=== PATIENT | female | born 1940 | race Caucasian/White ===

== ENCOUNTER 2021-04-13 14:39 | Inpatient (IN) | payer BC, MEDICARE, OTHER ==
[~2021-04-13] VITALS: Ht 172.7 cm; Wt 76.6 kg
--- NOTE | 2021-04-13 14:51 | NUR ---
PT BRUCE FROM [facility] SKILLED NURSING. PER EMS PT HAS BEEN WEAK AND SOB X1 WEEK. EMS STATES THAT MORNING STAR PHYSCIAN EVALUATED PT 2 DAYS AGO AND CHANGED METOPROLOL FROM 25MG QDAY TO 100MG QDAY. PER EMS PT HAS BEEN GETTING MORE SOB TODAY AND SO THEY WANTED HER EVALUATED. PT HAS POLST WITH HER THAT STATES COMFORT CARE ONLY. PT STATING SHE HAS NO PAIN, IS NOT SOB, AND DOES NOT FEEL WEAK. PT STATES "I JUST FEEL A LITTLE UNCOMFORTABLE FROM THE GURNEY". PT RESTING IN [facility], MONITORING IN PLACE, EKG DONE UPON ARRIVAL, NADN AT THIS TIME, WCTM.
[2021-04-13] MEDS ORDERED: SODIUM CHLORIDE FLUSH 10ML SYR IVF ONE (15:30)
[2021-04-13 15:35] LABS: BASOPHILS % (AUTO) 2 % (0-1); EOSINOPHILS % (AUTO) 2 % (1-7); LYMPHOCYTES % (AUTO) 17 % (22-44); MEAN CORPUSCULAR HEMOGLOBIN 30.9 pg (27.0-34.8); MEAN CORPUSCULAR HGB CONC 33.6 g/dL (32.4-35.8); MEAN PLATELET VOLUME 8.6 fL (7.4-10.4); MONOCYTES % (AUTO) 13 % (2-9); NEUTROPHILS % (AUTO) 67 % (42-75); PLATELET COUNT 247 x10^3/uL (130-400); RED BLOOD COUNT 4.18 x10^6/uL (3.82-5.3); RED CELL DISTRIBUTION WIDTH 15.1 % (9.6-15.2)
[2021-04-13 15:47] LABS: ALBUMIN 3.7 g/dL (3.4-5.0); ANION GAP 4 mmol/L (5-15); CALCIUM 9.6 mg/dL (8.5-10.1); CHLORIDE 107 mmol/L (98-107)
[2021-04-13 15:51] LABS: D-DIMER 1.02 ug/mlFEU (0.00-0.52); INTERNATIONAL NORMALIZED RATIO 1.04 (0.93-1.1); PROTHROMBIN TIME 11.1 Seconds (9.6-11.5)
[2021-04-13 15:57] LABS: CREATININE 1.48 mg/dL (0.55-1.02); FREE T4 (FREE THYROXINE) 1.33 ng/dL (0.76-1.46); TROPONIN I < 0.015 ng/mL (0.000-0.045)
[2021-04-13] MEDS ORDERED: OMNIPAQUE 350 MG/ML, 75ML BOTTLE ONE (18:15)
--- NOTE | 2021-04-13 18:15 | NUR ---
PT TO CT AT THIS TIME
--- NOTE | 2021-04-13 18:50 | NUR ---
REPORT TO JOSE ALEJANDRO CHASE.
--- NOTE | 2021-04-13 18:52 | NUR ---
report from diony assumed care of pt at this time
[2021-04-13] MEDS ORDERED: DILTIAZEM 5 MG/ML, 5ML IV ONE (19:30)
[2021-04-13] MEDS ORDERED: SODIUM CHLORIDE FLUSH 10ML SYR IVF PRN (19:30)
[2021-04-13] MEDS ORDERED: DILTIAZEM 5 MG/ML, 5ML ONE (19:44)
--- NOTE | 2021-04-13 19:50 | NUR ---
MEDICATED PER MAR
--- NOTE | 2021-04-13 20:40 | NUR ---
report to [facility] pt to floor with tech
[2021-04-13] MEDS ORDERED: DOCUSATE 100 MG CAPSULE PO PRN (21:00)
[2021-04-13] MEDS ORDERED: ACETAMINOPHEN 325 MG TABLET PO PRN (21:00)
[2021-04-13] MEDS ORDERED: MELATONIN 5 MG TABLET PO PRN (21:00)
[2021-04-13] MEDS ORDERED: LIDODERM 5% PATCH TD PRN (21:00)
[2021-04-13 21:25] VITALS: BP 136/97
[2021-04-13] MEDS: FUROSEMIDE 20 MG/2 ML IV SCH (22:16)
[2021-04-13] MEDS ORDERED: CARB1TAB47 PO ×2 (23:00)
[2021-04-13] MEDS ORDERED: PLEASE ENTER ALLERGIES MC SCH (23:00)
[2021-04-13] MEDS ORDERED: METO100T5 PO (23:00)
[2021-04-13] MEDS ORDERED: BISM262O20 PO (23:00)
[2021-04-13] MEDS ORDERED: DULO30CA44 PO (23:00)
[2021-04-13] MEDS ORDERED: MIRA25TA PO (23:00)
[2021-04-13] MEDS ORDERED: ACET-1600 PO (23:00)
[2021-04-13] MEDS ORDERED: LEVO50TA5 PO (23:00)
[2021-04-13] MEDS: APIXABAN 2.5 MG TABLET PO SCH (23:05)
[2021-04-13] MEDS ORDERED: LEVOTHYROXINE MC SCH (23:45)
[2021-04-13] MEDS ORDERED: METOPROLOL SUCCINATE 100 MG TAB.ER.24H ONE (23:53)
[2021-04-14] VITALS: BP 122/88
[2021-04-14] MEDS: CARBIDOPA/LEVODOPA 25 MG/100 MG TABLET PO SCH ×6 (00:02→20:15)
[2021-04-14] MEDS: DULOXETINE 30 MG CAPSULE.DR PO SCH ×3 (00:03→20:15)
[2021-04-14] MEDS: METOPROLOL SUCCINATE 100 MG TAB.ER.24H PO SCH (00:03)
[2021-04-14 05:27] LABS: BASOPHILS % (AUTO) 1 % (0-1); EOSINOPHILS % (AUTO) 1 % (1-7); LYMPHOCYTES % (AUTO) 13 % (22-44); MEAN CORPUSCULAR HEMOGLOBIN 30.4 pg (27.0-34.8); MEAN PLATELET VOLUME 8.9 fL (7.4-10.4); MONOCYTES % (AUTO) 12 % (2-9); NEUTROPHILS % (AUTO) 73 % (42-75); PLATELET COUNT 257 x10^3/uL (130-400); RED BLOOD COUNT 4.36 x10^6/uL (3.82-5.3)
[2021-04-14 05:37] LABS: ANION GAP 9 mmol/L (5-15); CALCIUM 9.7 mg/dL (8.5-10.1); CHLORIDE 105 mmol/L (98-107); CREATININE 1.44 mg/dL (0.55-1.02)
[2021-04-14] MEDS ORDERED: LEVOTHYROXINE 50 MCG TABLET PO SCH (07:00)
[2021-04-14 07:30] VITALS: BP 126/88
[2021-04-14] MEDS: FUROSEMIDE 20 MG/2 ML IV SCH ×2 (07:38→17:34)
[2021-04-14] MEDS: LEVOTHYROXINE 50 MCG TABLET PO SCH (07:39)
[2021-04-14] MEDS: APIXABAN 2.5 MG TABLET PO SCH ×2 (07:39→20:14)
[2021-04-14] MEDS: DILTIAZEM 90 MG TABLET PO SCH ×3 (10:20→20:14)
[2021-04-14] MEDS ORDERED: CARB1TAB44 PO (11:46)
[2021-04-14 13:57] VITALS: BP 96/65
[2021-04-14 17:30] VITALS: BP 130/85
[2021-04-14 18:51] VITALS: BP 102/62
[2021-04-14 20:09] VITALS: BP 105/73
[2021-04-14] MEDS: CARBIDOPA/LEVODOPA CR 50 MG/200 MG TABLET PO SCH (20:14)
[2021-04-14] MEDS: TEMPLATE NON-FORMULARY MED. (Mirabegron** (Myrbetriq**) 25 MG) HOMEMEDPO SCH ×2 (20:15)
[2021-04-15 01:32] VITALS: BP 114/80
[2021-04-15] MEDS: CARBIDOPA/LEVODOPA CR 50 MG/200 MG TABLET PO SCH ×4 (02:42→20:35)
[2021-04-15 07:36] VITALS: BP 115/72
[2021-04-15] MEDS: DILTIAZEM 120 MG CAP.ER.12H PO SCH ×2 (08:39→20:35)
[2021-04-15] MEDS: APIXABAN 2.5 MG TABLET PO SCH ×2 (09:13→20:35)
[2021-04-15] MEDS: FUROSEMIDE 20 MG/2 ML IV SCH ×2 (09:13→16:58)
[2021-04-15] MEDS: METOPROLOL SUCCINATE 100 MG TAB.ER.24H PO SCH (09:13)
[2021-04-15] MEDS: DULOXETINE 30 MG CAPSULE.DR PO SCH ×2 (09:14→20:35)
[2021-04-15] MEDS: LEVOTHYROXINE 50 MCG TABLET PO SCH (09:14)
[2021-04-15] MEDS: CARBIDOPA/LEVODOPA 25 MG/100 MG TABLET PO SCH ×4 (09:18→20:35)
[2021-04-15 14:45] VITALS: BP 112/73
[2021-04-15 20:04] VITALS: BP 102/75
[2021-04-15 20:31] VITALS: BP 104/72
[2021-04-15] MEDS: TEMPLATE NON-FORMULARY MED. (Mirabegron** (Myrbetriq**) 25 MG) HOMEMEDPO SCH (20:37)
[2021-04-16 01:06] VITALS: BP 104/69
[2021-04-16] MEDS: CARBIDOPA/LEVODOPA CR 50 MG/200 MG TABLET PO SCH ×3 (02:55→16:48)
[2021-04-16 08:40] VITALS: BP 111/78
[2021-04-16] MEDS: FUROSEMIDE 20 MG/2 ML IV SCH ×2 (08:45→16:50)
[2021-04-16] MEDS: METOPROLOL SUCCINATE 100 MG TAB.ER.24H PO SCH (08:46)
[2021-04-16] MEDS: DULOXETINE 30 MG CAPSULE.DR PO SCH (08:46)
[2021-04-16] MEDS: DILTIAZEM 120 MG CAP.ER.12H PO SCH (08:46)
[2021-04-16] MEDS: APIXABAN 2.5 MG TABLET PO SCH (08:47)
[2021-04-16] MEDS: LEVOTHYROXINE 50 MCG TABLET PO SCH (08:47)
[2021-04-16] MEDS: CARBIDOPA/LEVODOPA 25 MG/100 MG TABLET PO SCH ×2 (08:47→16:47)
[2021-04-16] MEDS ORDERED: DILT120C11 PO (14:41)
[2021-04-16] MEDS ORDERED: APIX2.5T PO (14:49)
[2021-04-16 15:05] VITALS: BP 104/78
== END 2021-04-16 19:09 | disposition home health service (06) | DRG 291 ==
LOC: ED 19:15 → EDIP 19:22 → ED 19:52 → 5SO 21:23
PROVIDERS: ADMIT Family Medicine; ATTEND Family Medicine
DX: I13.0 Hypertensive heart and chronic kidney disease with heart failure and stage 1 through stage 4 chronic kidney disease, or unspecified chronic kidney disease (principal); N17.0 Acute kidney failure with tubular necrosis; I50.21 Acute systolic (congestive) heart failure; J96.00 Acute respiratory failure, unspecified whether with hypoxia or hypercapnia; D68.69 Other thrombophilia; I48.20 Chronic atrial fibrillation, unspecified; E06.3 Autoimmune thyroiditis; E78.5 Hyperlipidemia, unspecified; G20 Parkinson's disease; N18.9 Chronic kidney disease, unspecified; Z66 Do not resuscitate; Z85.3 Personal history of malignant neoplasm of breast; Z86.73 Personal history of transient ischemic attack (TIA), and cerebral infarction without residual deficits
CPT/HCPCS: 36415; 71045; 71275; 80048; 82040; 83735; 83880; 84100; 84439; 84443; 84484; 85025; 85379; 85610; 85730; 93005; 93306; 96374; G0378; Q9967; J1940

== ENCOUNTER 2021-06-17 08:21 | Inpatient (IN) | payer BC ==
[~2021-06-17] VITALS: Ht 172.7 cm; Wt 75.1 kg
[~2021-06-17 08:21] MED LIST: ACET-1600 PO; APIX2.5T PO; BISM262O20 PO; CARB1TAB44 PO; CARB1TAB47 PO; DILT120C11 PO; DULO30CA44 PO; LEVO50TA5 PO; METO100T5 PO; MIRA25TA PO
[2021-06-17] MEDS ORDERED: ONDANSETRON 2MG/ML, 2ML ONE ×2 (08:26→17:39)
[2021-06-17] MEDS ORDERED: MORPHINE SULFATE 4 MG/ML, 1ML ONE ×2 (08:26→12:34)
[2021-06-17] MEDS ORDERED: ONDANSETRON 2MG/ML, 2ML IVPush ONE ×2 (08:30→12:30)
[2021-06-17] MEDS ORDERED: SODIUM CHLORIDE FLUSH 10ML SYR IVF ONE (08:30)
[2021-06-17] MEDS: MORPHINE SULFATE 4 MG/ML, 1ML IVPush PRN ×2 (08:36→12:35)
[2021-06-17] MEDS ORDERED: CLON0.5T20 PO (08:38)
[2021-06-17 08:50] LABS: BASOPHILS % (AUTO) 1 % (0-1); EOSINOPHILS % (AUTO) 2 % (1-7); LYMPHOCYTES % (AUTO) 11 % (22-44); MEAN CORPUSCULAR HEMOGLOBIN 29.8 pg (27.0-34.8); MEAN CORPUSCULAR HGB CONC 33.2 g/dL (32.4-35.8); MEAN PLATELET VOLUME 7.7 fL (7.4-10.4); MONOCYTES % (AUTO) 10 % (2-9); NEUTROPHILS % (AUTO) 77 % (42-75); PLATELET COUNT 260 x10^3/uL (130-400); RED BLOOD COUNT 4.48 x10^6/uL (3.82-5.3); RED CELL DISTRIBUTION WIDTH 16.2 % (9.6-15.2)
[2021-06-17 09:01] LABS: ALBUMIN 3.8 g/dL (3.4-5.0); ANION GAP 8 mmol/L (5-15); CALCIUM 9.7 mg/dL (8.5-10.1); CHLORIDE 105 mmol/L (98-107)
--- NOTE | 2021-06-17 09:23 | NUR ---
ERMD FAILED TO REDUCE LEFT SIDED INGUINAL HERNIA. PT HOB TO LEVEL OF COMFORT. NAD NOTED AT THIS TIME.
--- NOTE | 2021-06-17 09:26 | NUR ---
UA AND LANIE JUNE WALKED TO LAB. HOB TO LEVEL OF COMFORT FOR PT, NAD NOTED AT THIS TIME.
[2021-06-17 09:44] LABS: MICROSCOPIC AUTO
--- NOTE | 2021-06-17 09:48 | NUR ---
PT CURRENTLY TAKEN TO CT.
[2021-06-17] MEDS ORDERED: OMNIPAQUE 350 MG/ML, 100ML BOTTLE ONE (10:11)
--- NOTE | 2021-06-17 10:12 | NUR ---
ATTEMPT TO CALL PT'S DAUGHTER JEFFREY HOME: , WORK: PER PT REQUEST. NO ANSWER AT THIS TIME.
[2021-06-17] MEDS ORDERED: MORPHINE SULFATE 4 MG/ML, 1ML IVPush PRN (12:30)
[2021-06-17] MEDS ORDERED: ACETAMINOPHEN 325 MG TABLET PO PRN (13:30)
[2021-06-17 13:43] VITALS: BP 161/106
[2021-06-17] MEDS ORDERED: HUM PROTHROMBIN CPLX IVPB ONE (14:00)
[2021-06-17] MEDS ORDERED: [UNRECOGNIZED DRUG - OTHER] IVPB ONE (14:00)
[2021-06-17] MEDS ORDERED: ONDANSETRON 2MG/ML, 2ML IVPush PRN ×2 (14:30→18:30)
[2021-06-17 14:55] VITALS: BP 144/91
[2021-06-17] MEDS: DILTIAZEM 125 MG in SODIUM CHLORIDE 0.9% 100 ML IV SCH ×2 (15:39→20:37)
[2021-06-17] MEDS ORDERED: BUPIVACAINE/PF 0.5% ONE (16:40)
[2021-06-17] MEDS ORDERED: EPINEPHRINE 1 MG/ML, 1ML ONE (16:40)
[2021-06-17] MEDS: CEFTRIAXONE 1,000 MG in DEXTROSE 5% 50 ML IVPB SCH (16:43)
[2021-06-17] MEDS ORDERED: PROPOFOL 10 MG/ML, 20ML ONE (17:39)
[2021-06-17] MEDS ORDERED: CEFOTETAN 1 GM ONE (17:39)
[2021-06-17] MEDS ORDERED: DEXAMETHASONE 4 MG/ML, 1ML ONE (17:39)
[2021-06-17] MEDS ORDERED: SUGAMMADEX 200 MG/2 ML IVPush ONE (17:39)
[2021-06-17] MEDS ORDERED: ROCURONIUM 10 MG/ML,10ML ONE (17:39)
[2021-06-17] MEDS ORDERED: FENTANYL PF 250 MCG/5ML ONE (18:01)
[2021-06-17] MEDS ORDERED: HYDROmorphone 1 MG/ML, 1ML INJ IVPush PRN (18:30)
[2021-06-17] MEDS ORDERED: OXYcodone 5 MG/5 ML ORAL.SOL UDC PO PRN (18:30)
[2021-06-17] MEDS ORDERED: EPHEDRINE 50 MG/ML, 1ML IVPush PRN (18:30)
[2021-06-17] MEDS ORDERED: hydrALAzine 20 MG/ML, 1ML IV PRN (18:30)
[2021-06-17] MEDS ORDERED: FENTANYL PF 100 MCG/2ML IV PRN (18:30)
[2021-06-17] MEDS ORDERED: PROMETHAZINE 25 MG/ML, 1ML IVPush PRN (18:30)
[2021-06-17] MEDS ORDERED: PROMETHAZINE 12.5 MG SUPP PR PRN (18:30)
[2021-06-17] MEDS ORDERED: MEPERIDINE/PF 25MG/0.5ML IVPush PRN (18:30)
[2021-06-17] MEDS ORDERED: ALBUTEROL SULFATE 2.5 MG/3 ML NPPB PRN (18:30)
[2021-06-17] MEDS ORDERED: DIPHENHYDRAMINE 50 MG/ML, 1ML IVPush PRN ×2 (18:30)
[2021-06-17] MEDS ORDERED: LABETALOL 5MG/ML, 20ML IV PRN (18:30)
[2021-06-17] MEDS ORDERED: TRAZODONE 50MG TABLET PO PRN (21:00)
[2021-06-17 21:03] VITALS: BP 153/83
[2021-06-18 01:06] VITALS: BP 142/90
[2021-06-18] MEDS: DILTIAZEM 125 MG in SODIUM CHLORIDE 0.9% 100 ML IV SCH ×2 (02:51→15:59)
[2021-06-18 06:56] LABS: BASOPHILS % (AUTO) 1 % (0-1); EOSINOPHILS % (AUTO) 0 % (1-7); LYMPHOCYTES % (AUTO) 5 % (22-44); MEAN CORPUSCULAR HEMOGLOBIN 30.1 pg (27.0-34.8); MEAN CORPUSCULAR HGB CONC 33.7 g/dL (32.4-35.8); MEAN PLATELET VOLUME 7.8 fL (7.4-10.4); MONOCYTES % (AUTO) 2 % (2-9); NEUTROPHILS % (AUTO) 93 % (42-75); PLATELET COUNT 282 x10^3/uL (130-400); RED BLOOD COUNT 4.64 x10^6/uL (3.82-5.3); RED CELL DISTRIBUTION WIDTH 16.4 % (9.6-15.2)
[2021-06-18 07:00] VITALS: BP 143/84
[2021-06-18 07:10] LABS: ALBUMIN 3.6 g/dL (3.4-5.0); CALCIUM 10.1 mg/dL (8.5-10.1); CHLORIDE 103 mmol/L (98-107)
[2021-06-18 07:15] LABS: ALANINE AMINOTRANSFERASE 11 U/L (12-78); ALKALINE PHOSPHATASE 84 U/L (45-117); ANION GAP 11 mmol/L (5-15); BILIRUBIN,TOTAL 0.7 mg/dL (0.2-1.0); CREATININE 1.38 mg/dL (0.55-1.02); TOTAL PROTEIN 8.2 g/dL (6.4-8.2); TROPONIN I < 0.015 ng/mL (0.000-0.045)
[2021-06-18] MEDS: morphine SULFATE 10 MG/ML, 1ML IVPush PRN ×2 (09:58→21:52)
[2021-06-18] MEDS: METOPROLOL TARTRATE 25 MG TAB PO SCH ×2 (10:53→18:50)
[2021-06-18] MEDS: APIXABAN 5 MG TABLET PO SCH ×2 (10:53→21:51)
[2021-06-18 13:42] VITALS: BP 156/105
[2021-06-18] MEDS: CEFTRIAXONE 1,000 MG in DEXTROSE 5% 50 ML IVPB SCH (14:44)
[2021-06-18] MEDS: CARBIDOPA/LEVODOPA 25 MG/100 MG TABLET PO SCH ×3 (16:00→21:51)
[2021-06-18 18:47] VITALS: BP 128/88
[2021-06-18] MEDS: TEMPLATE NON-FORMULARY MED. (Mirabegron** (Myrbetriq**) 25 MG) PO SCH (21:00)
[2021-06-18] MEDS: CARBIDOPA/LEVODOPA CR 50 MG/200 MG TABLET PO SCH (21:00)
[2021-06-18] MEDS: DULOXETINE 30 MG CAPSULE.DR PO SCH (21:51)
[2021-06-18] MEDS: MELATONIN 5 MG TABLET PO PRN (21:51)
[2021-06-19 02:00] VITALS: BP 116/77
[2021-06-19] MEDS: METOPROLOL TARTRATE 25 MG TAB PO SCH ×2 (05:58→17:13)
[2021-06-19] MEDS: LEVOTHYROXINE 50 MCG TABLET PO SCH (05:58)
[2021-06-19 07:27] VITALS: BP 142/96
[2021-06-19] MEDS ORDERED: DILTIAZEM 125 MG in SODIUM CHLORIDE 0.9% 100 ML IV SCH (08:00)
[2021-06-19] MEDS: CARBIDOPA/LEVODOPA 25 MG/100 MG TABLET PO SCH ×4 (08:25→22:46)
[2021-06-19] MEDS: DULOXETINE 30 MG CAPSULE.DR PO SCH ×2 (08:25→22:46)
[2021-06-19] MEDS: APIXABAN 5 MG TABLET PO SCH ×2 (08:25→22:46)
[2021-06-19] MEDS ORDERED: DOCUSATE 100 MG CAPSULE PO PRN (13:00)
[2021-06-19] MEDS: SENNA/DOCUSATE TABLET PO SCH (14:33)
[2021-06-19] MEDS: POLYETHYLENE GLYCOL 17 GM PACKET PO PRN (14:34)
[2021-06-19] MEDS: CEFTRIAXONE 1,000 MG in DEXTROSE 5% 50 ML IVPB SCH (14:46)
[2021-06-19 14:56] VITALS: BP 125/80
[2021-06-19 17:10] VITALS: BP 151/98
[2021-06-19 19:58] VITALS: BP 117/74
[2021-06-19] MEDS: TEMPLATE NON-FORMULARY MED. (Mirabegron** (Myrbetriq**) 25 MG) PO SCH (22:41)
[2021-06-19] MEDS: CARBIDOPA/LEVODOPA CR 50 MG/200 MG TABLET PO SCH (22:44)
[2021-06-19] MEDS: DILTIAZEM 120 MG CAP.ER.12H PO SCH (22:46)
[2021-06-19] MEDS: MELATONIN 5 MG TABLET PO PRN (22:55)
[2021-06-19] MEDS: OXYcodone/APAP 5/325MG TABLET PO PRN (23:43)
[2021-06-20 03:45] VITALS: BP 146/93
[2021-06-20] MEDS: LEVOTHYROXINE 50 MCG TABLET PO SCH (06:28)
[2021-06-20] MEDS: METOPROLOL TARTRATE 25 MG TAB PO SCH (06:28)
[2021-06-20 06:32] VITALS: BP 153/100
[2021-06-20] MEDS: DILTIAZEM 120 MG CAP.ER.12H PO SCH (11:04)
[2021-06-20] MEDS: CARBIDOPA/LEVODOPA 25 MG/100 MG TABLET PO SCH (11:04)
[2021-06-20] MEDS: SENNA/DOCUSATE TABLET PO SCH (11:05)
[2021-06-20] MEDS: DULOXETINE 30 MG CAPSULE.DR PO SCH (11:05)
[2021-06-20] MEDS: APIXABAN 5 MG TABLET PO SCH (11:05)
[2021-06-20] MEDS: POLYETHYLENE GLYCOL 17 GM PACKET PO PRN (11:38)
[2021-06-20 12:22] VITALS: BP 116/83
[2021-06-20] MEDS ORDERED: SENN-211 PO (12:49)
[2021-06-20] MEDS ORDERED: DOCU-131 PO (12:49)
[2021-06-20] MEDS: OXYcodone/APAP 5/325MG TABLET PO PRN (13:58)
== END 2021-06-20 14:43 | disposition home health service (06) | DRG 351 ==
LOC: ED 08:37 → 4NE 11:13 → SUATTDRO 12:54 → 4NE 13:15 → ED 13:46 → 5SO 14:52
PROVIDERS: ADMIT Internal Medicine; ATTEND Hospitalist
PROC: 8E0W4CZ Robotic Assisted Procedure of Trunk Region, Percutaneous Endoscopic Approach (ICD-10-PCS; 2021-06-17)
PROC: 0YU64JZ Supplement Left Inguinal Region with Synthetic Substitute, Percutaneous Endoscopic Approach (ICD-10-PCS; principal; 2021-06-17 17:00)
DX: K40.31 Unilateral inguinal hernia, with obstruction, without gangrene, recurrent (principal); I48.20 Chronic atrial fibrillation, unspecified; N39.0 Urinary tract infection, site not specified; G20 Parkinson's disease; I50.9 Heart failure, unspecified; N18.30 Chronic kidney disease, stage 3 unspecified; Z66 Do not resuscitate; Z20.822 Contact with and (suspected) exposure to COVID-19; R53.81 Other malaise; Z79.01 Long term (current) use of anticoagulants; Z86.73 Personal history of transient ischemic attack (TIA), and cerebral infarction without residual deficits; Z80.8 Family history of malignant neoplasm of other organs or systems
CPT/HCPCS: 36415; 96374; 96375; 96376; 99285; S0020; 74177; 80048; 80053; 81001; 82040; 84484; 85025; 87077; 87086; 87186; 87635; 93005; G0378; J0171; J0696; J1100; J2405; J2704; J3010; Q9967; C1781; C9132; J2270